=== PATIENT | female | born 2000 | race Hispanic/Latino ===

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

== ENCOUNTER 2023-02-11 03:09 | Emergency (ER) | payer OTHER | END 2023-02-11 03:46 | disposition home or self-care (01) | LOC: ERS 03:09 | DX: H66.92 Otitis media, unspecified, left ear (principal) | CPT/HCPCS: 99282 ==